=== PATIENT | female | born 1990 | race Two or more races ===

== ENCOUNTER → 2017-12-08 | Emergency (ER) | payer OTHER ==
[~2017-12-08] VITALS: Ht 172.7 cm; Wt 79.4 kg
[~2017-12-08] MED LIST: ANTICONCEPTIVOS; FLEXERIL10 MG PO; IOPHEN DM-100 MG/5 M PO; KETO10TA2 PO; MOTRIN800 MG PO; NAPR500T14 PO; SEPTRA DS TABLE1 TAB; VOLTAREM 50 MG PO; ZITHROMAX500 MG PO; ZYRTEC10 MG PO
== END | disposition home or self-care (01) ==
LOC: ER 06:41
DX: R10.2 Pelvic and perineal pain (principal)

== ENCOUNTER → 2017-12-15 06:26 | Outpatient (CLI) | payer OTHER | END | disposition home or self-care (01) | LOC: LAB 06:26 | DX: N91.2 Amenorrhea, unspecified (principal) ==

== ENCOUNTER 2017-12-20 06:36 | Outpatient (CLI) | payer OTHER | END 2017-12-20 06:42 | disposition home or self-care (01) | LOC: LAB 06:36 | DX: N91.2 Amenorrhea, unspecified (principal) ==

== ENCOUNTER → 2018-02-16 08:02 | Outpatient (CLI) | payer OTHER | END | disposition home or self-care (01) | LOC: LAB 08:02 | DX: Z13.0 Encounter for screening for diseases of the blood and blood-forming organs and certain disorders involving the immune mechanism (principal); D64.9 Anemia, unspecified ==

== ENCOUNTER → 2018-03-14 | Emergency (ER) | payer OTHER ==
[~2018-03-14] VITALS: Ht 175.3 cm; Wt 74.8 kg
== END | disposition left against medical advice (07) ==
LOC: ER 16:12
DX: Z53.20 Procedure and treatment not carried out because of patient's decision for unspecified reasons (principal)

== ENCOUNTER → 2018-03-17 | Outpatient (CLI) | payer OTHER | END | disposition home or self-care (01) | LOC: LAB 03-16 14:37 | DX: R21 Rash and other nonspecific skin eruption (principal); Z3A.18 18 weeks gestation of pregnancy ==

== ENCOUNTER 2018-03-22 06:24 | Outpatient (CLI) | payer OTHER | END 2018-03-22 07:09 | disposition home or self-care (01) | LOC: LAB 06:24 | DX: O09.892 Supervision of other high risk pregnancies, second trimester (principal); Z31.430 Encounter of female for testing for genetic disease carrier status for procreative management; Z31.5 Encounter for procreative genetic counseling ==

== ENCOUNTER 2018-04-06 13:40 | Outpatient (CLI) | payer OTHER | END 2018-04-06 13:49 | disposition home or self-care (01) | LOC: SONOGRAMA 13:40 | DX: Z34.02 Encounter for supervision of normal first pregnancy, second trimester (principal); Z3A.20 20 weeks gestation of pregnancy ==

== ENCOUNTER 2018-04-11 08:37 | Outpatient (CLI) | payer OTHER | END 2018-04-11 15:00 | disposition home or self-care (01) | LOC: OBS/DEL 08:37 | DX: O26.892 Other specified pregnancy related conditions, second trimester (principal); R10.2 Pelvic and perineal pain; O60.02 Preterm labor without delivery, second trimester; Z34.82 Encounter for supervision of other normal pregnancy, second trimester ==

== ENCOUNTER 2018-04-17 00:18 | Outpatient (CLI) | payer OTHER | END 2018-04-17 10:24 | disposition home or self-care (01) | LOC: OBS/DEL 00:18 | DX: O26.892 Other specified pregnancy related conditions, second trimester (principal); E16.1 Other hypoglycemia; Z34.82 Encounter for supervision of other normal pregnancy, second trimester ==

== ENCOUNTER → 2018-05-10 06:25 | Outpatient (CLI) | payer OTHER | END | disposition home or self-care (01) | LOC: LAB 06:25 | DX: O09.892 Supervision of other high risk pregnancies, second trimester (principal) ==

== ENCOUNTER 2018-07-03 13:28 | Outpatient (CLI) | payer OTHER | END 2018-07-04 18:26 | disposition home or self-care (01) | LOC: OBS/DEL 13:28 | DX: O13.3 Gestational [pregnancy-induced] hypertension without significant proteinuria, third trimester (principal); Z34.83 Encounter for supervision of other normal pregnancy, third trimester ==

== ENCOUNTER 2018-07-15 09:30 | Outpatient (CLI) | payer OTHER | END 2018-07-15 09:34 | disposition home or self-care (01) | LOC: LAB 09:30 | DX: J00 Acute nasopharyngitis [common cold] (principal); R05 Cough ==

== ENCOUNTER 2018-07-29 08:48 | Outpatient (CLI) | payer OTHER | END 2018-07-29 09:01 | disposition home or self-care (01) | LOC: LAB 08:48 | DX: O09.893 Supervision of other high risk pregnancies, third trimester (principal); Z11.4 Encounter for screening for human immunodeficiency virus [HIV]; R51 Headache; J20.0 Acute bronchitis due to Mycoplasma pneumoniae ==